=== PATIENT | female | born 1990 | race Asian ===

== ENCOUNTER → 2020-01-24 | Outpatient (CLI) | payer OTHER | LOC: EDBD → DIA.ED 13:37 | DX: O24.419 Gestational diabetes mellitus in pregnancy, unspecified control (principal) | CPT/HCPCS: G0108 ==

== ENCOUNTER 2020-03-21 14:41 | Outpatient (CLI) | payer OTHER ==
[~2020-03-21] VITALS: Ht 165.1 cm; Wt 62.3 kg
--- NOTE | 2020-03-21 14:40 | NUR ---
Pt arrives on unit ambulatory from office. States increase of discharge and wetness. Unsure of SROM. Changed into clean gown. EFM and toco applied. VSS. Denies vaginal bleeding, regular ctx, and reports GFM. Amniotest negative. SVE per this RN /-2 with MARIJA. Admission assessment completed. Dr. Fitzgerald notified. Orders to observe x 1 hour and recheck SVE. Pt updated on POC. Bed locked in low position. Call light within reach. No questions or concerns at this time.
[2020-03-21 14:48] VITALS: BP 108/56; PULSE 73; TEMP 97.6
[2020-03-21 16:00] VITALS: BP 108/56; PULSE 73; TEMP 97.8
== END 2020-03-21 16:00 | disposition home or self-care (01) ==
LOC: LDRO 14:41
DX: O62.9 Abnormality of forces of labor, unspecified (principal); O42.92 Full-term premature rupture of membranes, unspecified as to length of time between rupture and onset of labor; Z3A.39 39 weeks gestation of pregnancy

== ENCOUNTER 2020-03-22 11:59 | Inpatient (IN) | payer OTHER ==
[~2020-03-22] VITALS: Ht 165.1 cm; Wt 62.3 kg
[2020-03-22] VITALS (26 sets, daily range): BP systolic 98–148; BP diastolic 53–79; PULSE 68–115; TEMP 97.7–98.4
--- NOTE | 2020-03-22 12:15 | NUR ---
1215-Patient ambulatory to LR 5 with complaints of SROM at 1145, visible fluid dripping down leg, Amnitest +. SVE /-1. Placed on EFM, reactive FHR, VSS. Dr. Fitzgerald updated. See MD notification. IV to right upper arm. Blood collected and sent to lab per orders. LR infusing per orders. Patient diet controlled GDM-now glucose 111. Assessment complete. Reported off to YvetteRN
[2020-03-22 14:46] LABS: BASO # 0.1 (0.0-0.2); BASO % 0.6 % (0.0-2.0); EOS % 0.4 % (0-4.0); GRAN # 8.8 (1.4-6.5); GRAN % 82.1 % (42.2-75.2); HEMATOCRIT 35.8 % (37.0-47.0); HEMOGLOBIN 11.1 g/dl (12.5-16.0); LYMPH # 1.3 (1.2-3.4); MEAN CELL VOLUME 79 fl (80.0-100.0); MEAN CORPUSCULAR HEMOGLOBIN 25 pg (27.0-31.0); MEAN CORPUSCULAR HGB CONC 31 g/dl (33.0-37.0); MONO # 0.5 (0.1-0.6); MONO % 4.2 % (1.7-9.3); PLATELET COUNT 144 K/mm3 (130-400); RED BLOOD COUNT 4.53 M/mm3 (4.10-5.30); REDCELL DISTRIBUTION WIDTH-CV 16.8 % (11.5-14.5)
--- NOTE | 2020-03-22 15:35 | NUR ---
SVE-//-[address] Fitzgerald orders to start pitocin at this time and patient agrees with plan of pitocin. Questions answered. 1455: Patient voids. Returns and sitting on birthing ball. 1530: Patient uncomfortable with contractions, coping well with labor. 1650: Patient standing at edge of bed. 1800: Patient standing and leaning over. FHR intermittently tracing maternal heart rate. 1805: SVE-/+[address] Champion notified. Patient prepped for vaginal delivery. 1820: Bedside report given to Meredith FRIAS at this time.
--- NOTE | 2020-03-22 18:20 | NUR ---
Pt moaning with contractions, encouraged not to push. Multiple RN's @ bedside, Dr Champion en route.
--- NOTE | 2020-03-22 18:35 | NUR ---
Dr Champion into room, assesses pushing, coaches. 1844 Dr Champion out to L&D dek. Pt continues pushing. Slight language barrier making coaching complicated. Mother in law @ bedide, no [place], supportive and positive.
--- NOTE | 2020-03-22 19:10 | NUR ---
FHT's to 90's with contractions/pushing, returns to baseline with cessation of pushing. 1912 Dr Champion into room, pt pushing well. [address] infant by Dr Champion after reduction of nuchal cord. Pt surpised, panicky. Emotional support and deep breathing coached, calms down.
--- NOTE | 2020-03-22 19:20 | NUR ---
Placenta deliver spont and intact with 3 vessell cord. Pitocin gtt to bolus rate.
--- NOTE | 2020-03-22 19:25 | NUR ---
perineal repair in progress lochia heavy, firms with vigorous massage and several small clots expressed. Dr Champion continues with repair.
--- NOTE | 2020-03-22 19:40 | NUR ---
Perineal repair complete, pericare performed. Ice pack to perineum. Bed together. Pt cuddling with infant, grandma loving, excited, videochatting with extended family in [place].
--- NOTE | 2020-03-22 22:45 | NUR ---
IV to INT. Up to bathroom with steady gait, unable to void @ this time, pericare performed, clean gown on. During ambulation back to bed pt bends forward @ waist. When this RN inquired what she was looking at pt states "I'm just dizzy", pt assisted back to bed by [id number] and this RN. [id number] quickly cover pt with multiple blankets and offers her water. BP 119/56, P88. 2255 Pivot transfer to wheelchair and transferred to room. Explained to pt that she is not to get out of bed without RN assistance. Verbalizes understanding.
[2020-03-23 04:15] VITALS: BP 97/49; PULSE 85; TEMP 98.8
[2020-03-23 08:17] VITALS: BP 114/59; PULSE 86; TEMP 98
--- NOTE | 2020-03-23 13:05 | NUR ---
stopped by and offered congrats to patient.
[2020-03-23 16:58] VITALS: BP 110/41; PULSE 70; TEMP 98
[2020-03-23 20:00] VITALS: BP 99/52; PULSE 74; TEMP 98.6
[2020-03-24 02:00] VITALS: BP 108/68; PULSE 72; TEMP 97.9
[2020-03-24 08:20] VITALS: BP 105/55; PULSE 87; TEMP 98
--- NOTE | 2020-03-24 08:30 | NUR ---
Patient offered COVID-19 test. Patient refuses.
--- NOTE | 2020-03-24 11:45 | NUR ---
Patient given discharge instructions. DEnies questions.
== END 2020-03-24 11:53 | disposition home or self-care (01) | DRG 807 ==
LOC: LDRO 11:59 → LDR 12:15 → OB 22:30
PROVIDERS: ADMIT Obstetrics & Gynecology
PROC: 10E0XZZ Delivery of Products of Conception, External Approach (ICD-10-PCS; principal; 2020-03-22)
PROC: 0KQM0ZZ Repair Perineum Muscle, Open Approach (ICD-10-PCS; 2020-03-22)
PROC: 3E033VJ Introduction of Other Hormone into Peripheral Vein, Percutaneous Approach (ICD-10-PCS; 2020-03-22)
DX: O24.420 Gestational diabetes mellitus in childbirth, diet controlled (principal); Z37.0 Single live birth; O99.344 Other mental disorders complicating childbirth; Z3A.39 39 weeks gestation of pregnancy; O70.1 Second degree perineal laceration during delivery
CPT/HCPCS: J2590; J7120

== ENCOUNTER → 2020-11-15 | Outpatient (CLI) | payer OTHER | LOC: COL.RAD 08:33 | DX: M47.812 Spondylosis without myelopathy or radiculopathy, cervical region (principal); M48.02 Spinal stenosis, cervical region ==